=== PATIENT | male | born 1955 | race Asian ===

== ENCOUNTER 2023-07-29 06:32 | Day surgery (SDC) | payer OTHER ==
[~2023-07-29] VITALS: Ht 170.2 cm; Wt 72.6 kg
[2023-07-29] MEDS ORDERED: MIDAZOLAM HCL 5 MG/5 ML VIAL ONE (07:43)
[2023-07-29] MEDS ORDERED: MEPERIDINE 100 MG INJ. 100 MG/ML VIAL ONE (07:43)
[2023-07-29 13:01] VITALS: BP_SYST 129; PULSE 61; RESP 20; TEMP 97.7; O2SAT 99
== END 2023-07-29 11:41 | disposition home or self-care (01) ==
LOC: SDS 06:32 → SMU 06:34 → SDS 11:41
PROVIDERS: ATTEND Internal Medicine Gastroenterology
DX: Z12.11 Encounter for screening for malignant neoplasm of colon (principal); D12.3 Benign neoplasm of transverse colon; D12.2 Benign neoplasm of ascending colon; K31.A0 Gastric intestinal metaplasia, unspecified; K21.9 Gastro-esophageal reflux disease without esophagitis; K64.8 Other hemorrhoids; J45.909 Unspecified asthma, uncomplicated; Z90.49 Acquired absence of other specified parts of digestive tract; Z88.1 Allergy status to other antibiotic agents; Z79.899 Other long term (current) drug therapy; Z87.891 Personal history of nicotine dependence; Z86.010 Personal history of colon polyps
CPT/HCPCS: 45385; 43239; 99152; 87081; 36415; 88305; 88312; 88313; 99153; G0378; J2250; J2175